=== PATIENT | female | born 1970 | race Caucasian/White ===

== ENCOUNTER → 2024-07-14 | Day surgery (SDC) | payer MEDICAID ==
[~2024-07-14] VITALS: Ht 160 cm; Wt 83.9 kg
[~2024-07-14] MED LIST: FENTANYL CITRATE/PF 50MCG/ML 2ML VIAL ONE; GLYCOPYRROLATE 0.2 MG/ML 2ML VIAL IV PRN; HYDRALAZINE 20MG/ML VIAL IV PRN; HYDROMORPHONE HCL/PF 1MG/ML INJ IV PRN; LABETALOL 5MG/ML 4ML INJ IV PRN; LEVO50TA8 PO; METF-414 PO; MIDAZOLAM HCL 2 MG/2 ML VIAL ONE; ONDANSETRON HCL 4MG/2ML INJ IV PRN; SODIUM CHLORIDE 0.9% 1,000 ML IV SCH
[2024-07-14 10:29] LABS: CHLORIDE 107 mEq/L (98-107); POTASSIUM 4.4 mEq/L (3.5-5.1); SODIUM 141 mEq/L (136-145)
[2024-07-14 10:30] LABS: BASOPHILS % 0.6 % (0.0-2.0); CALCIUM 8.9 mg/dL (8.7-10.4); CARBON DIOXIDE 29 mEq/L (21-32); EOSINOPHILS % 1.7 % (0.0-5.0); HEMOGLOBIN. 13.4 g/dL (12.0-16.0); LYMPHOCYTES % 39.4 % (20.0-50.0); MEAN CORPUSCULAR HEMOGLOBIN 32.9 pg (28.0-32.0); MEAN CORPUSCULAR HGB CONC 34.3 g/dL (31.0-37.0); MEAN CORPUSCULAR VOLUME 95.7 fL (81.0-99.0); MEAN PLATELET VOLUME 9.1 fl (7.4-10.4); NEUTROPHILS % 48.3 % (40.0-76.0); PLATELET 179 x1000/uL (130-400); RED BLOOD CELL COUNT 4.08 mill/uL (4.2-5.4); RED CELL DISTRIBUTION WIDTH 13.5 % (11.6-14.6); WHITE BLOOD COUNT 5.8 x1000/uL (4.5-11.0)
[2024-07-14 10:35] LABS: CREATININE 0.7 mg/dL (0.6-1.0); GLUCOSE 124 mg/dL (70-105); UREA NITROGEN BLOOD 11 mg/dL (9-23)
== END | disposition home or self-care (01) ==
LOC: OR 08:02
PROVIDERS: ATTEND Ophthalmology
DX: D23.111 Other benign neoplasm of skin of right upper eyelid, including canthus (principal); D23.121 Other benign neoplasm of skin of left upper eyelid, including canthus; D23.122 Other benign neoplasm of skin of left lower eyelid, including canthus; D23.112 Other benign neoplasm of skin of right lower eyelid, including canthus; I51.7 Cardiomegaly; E11.9 Type 2 diabetes mellitus without complications; E03.9 Hypothyroidism, unspecified; Z85.3 Personal history of malignant neoplasm of breast; Z79.899 Other long term (current) drug therapy; Z98.890 Other specified postprocedural states; Z79.84 Long term (current) use of oral hypoglycemic drugs
CPT/HCPCS: 67840; 80048; 82962; 85025; 36415; 93005; J3010; J2250; A4663